=== PATIENT | female | born 2000 | race Hispanic/Latino ===

== ENCOUNTER 2020-06-27 09:21 | Outpatient (CLI) | payer OTHER ==
--- NOTE | 2020-06-27 13:28 | Ultrasound Report ---
ULTRASOUND ABDOMEN, LIMITED (RIGHT UPPER QUADRANT) INDICATION: Abdominal pain. 30 weeks 2 days . COMPARISON: None available. FINDINGS: PANCREAS: No significant abnormality. LIVER: No significant abnormality. GALLBLADDER: Multiple small echogenic foci in the gallbladder neck which demonstrate posterior shadow ing. The gallbladder is normal in size without wall thickening. Negative sonographic Marin sign. BILE DUCTS: No significant abnormality. Common bile duct measures 2.4 mm. FREE FLUID: None. ADDITIONAL FINDINGS: Images of the right kidney are normal. IMPRESSION: Cholelithiasis without sonographic evidence of acute cholecystitis. Signer Name: Slade Valdez MD Signed: 06/27/2020 1:24 PM Workstation Name: [id number]
== END 2020-06-27 09:22 | disposition home or self-care (01) ==
LOC: US 09:21
PROVIDERS: ATTEND Obstetrics & Gynecology
DX: K80.20 Calculus of gallbladder without cholecystitis without obstruction (principal)
CPT/HCPCS: 76705

== ENCOUNTER 2020-07-03 20:04 | Outpatient (CLI) | payer OTHER ==
[2020-07-03 20:52] VITALS: BP 107/97
[2020-07-03 21:50] LABS: Bacteria,Urine 2+ /HPF (Negative); Bilirubin,Urine NEG (Negative); Blood,Urine NEG (Negative); Color,Urine Amber (Yellow); Protein,Urine <15 mg/dL mg/dL (Negative); Urobilinogen,Urine < 2.0 mg/dL (<2.0)
[2020-07-03] MEDS ORDERED: LACTATED RINGERS 500 ML IV ONE (22:01)
[2020-07-03 22:24] LABS: Alanine Aminotransferase 18 units/L (7-56); Albumin 2.9 g/dL (3.9-5); Blood Urea Nitrogen 6 mg/dL (7-17); Calcium 7.7 mg/dL (8.4-10.2); Hemolysis Index 8
[2020-07-03 22:26] LABS: Eosinophils # (Auto) 0.1 K/mm3 (0.0-0.4); Eosinophils % (Auto) 0.7 % (0.0-4.3); Hematocrit 32.3 % (30.3-42.9); Hemoglobin 11.2 gm/dl (10.1-14.3); Lymphocytes % (Auto) 18.7 % (13.4-35.0); Mean Corpuscular HGB Conc 35 % (30-34); Mean Corpuscular Volume 92 fl (79-97); Monocytes # (Auto) 0.7 K/mm3 (0.0-0.8); Monocytes % (Auto) 6.9 % (0.0-7.3); Platelet Count 251 K/mm3 (140-440); Red Blood Count 3.52 M/mm3 (3.65-5.03); Red Cell Distribution Width 12.5 % (13.2-15.2)
[2020-07-03 22:27] LABS: Basophils % (Auto) 0.1 % (0.0-1.8)
[2020-07-03 22:27] LABS: BUN/Creatinine Ratio 15
== END 2020-07-03 23:16 | disposition home or self-care (01) ==
LOC: TRG 20:04 → APU 20:11 → TRG 23:16
PROVIDERS: ATTEND Obstetrics & Gynecology
DX: O26.893 Other specified pregnancy related conditions, third trimester (principal); R10.9 Unspecified abdominal pain; Z3A.31 31 weeks gestation of pregnancy
CPT/HCPCS: 36415; 59025; 80053; 81001; 82150; 83690; 85025; 96360

== ENCOUNTER 2020-08-20 18:06 | Outpatient (CLI) | payer OTHER ==
[2020-08-20 19:33] VITALS: BP 113/74
--- NOTE | 2020-08-20 21:41 | Vascular Lab Report ---
DUPLEX DOPPLER LOWER EXTREMITY VEINS, BILATERAL INDICATION / CLINICAL INFORMATION: Lower extremity swelling and pain. TECHNIQUE: Duplex doppler imaging was performed through the veins of both lower extremities using venous christian byron and other maneuvers. COMPARISON: None available. FINDINGS: RIGHT COMMON FEMORAL VEIN: Negative. RIGHT FEMORAL VEIN: Negative. RIGHT POPLITEAL VEIN: Negative. RIGHT CALF VEINS: Negative. LEFT COMMON FEMORAL VEIN: Negative. LEFT FEMORAL VEIN: Negative. LEFT POPLITEAL VEIN: Negative. LEFT CALF VEINS: Negative. ADDITIONAL FINDINGS: None. IMPRESSION: No sonographic evidence for DVT in either lower extremity. Signer Name: Roberto Liu MD Signed: 08/20/2020 9:37 PM Workstation Name: [id number]
--- NOTE | 2020-08-20 22:00 | Event Note ---
Date: 08/20/20 Pt presented to triage with c/o swelling in her lower extremities. She called the office and was told to come to the hospital for evaluation. She is a @ 37 + wks. She states that she has been walking around for about 5-6 hours a day for the last few days. Yesterday she went to work and was on her feet for 12 hours. Pt denies LEMUS, blurred vision, spots before her eyes, chest pain, upper abdominal pain, and shortness of breath. Her BP in triage was 113/74 and she was her O@ saturation was 99% on room air. Kerry Doppler studies were ordered and found to be negative for DVTs. She answered the COVID question of shortness of breath as yes, but denied shortness of breath upon further questioning. Her vital signs are as charted: O2 sats 99% on room air. We discussed taking a break every 2 hours at work, cutting back on salt, and putting her feet up when she is sitting down. We also discussed in third trimester swelling can occur and this is normal in . Pt has an appointment on 08/22 for follow up. Pt denies vaginal bleeding, LOF, ctxs. 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
== END 2020-08-20 21:30 | disposition home or self-care (01) ==
LOC: TRG 18:06 → APU 18:07 → TRG 21:30
PROVIDERS: ATTEND Obstetrics & Gynecology
DX: Z34.93 Encounter for supervision of normal pregnancy, unspecified, third trimester (principal); M79.89 Other specified soft tissue disorders; Z3A.37 37 weeks gestation of pregnancy
CPT/HCPCS: 59025; 93970

== ENCOUNTER 2020-08-28 17:58 | Inpatient (IN) | payer OTHER ==
[2020-08-30 16:11] VITALS: BP 114/73
== END 2020-08-30 16:50 | disposition home or self-care (01) | DRG 775 ==
LOC: TRG 17:58 → APU 18:00 → TRG 20:18 → OBSVTOIN 20:22 → LD 20:22 → OB 08-29 06:31
PROVIDERS: ADMIT Obstetrics & Gynecology; ATTEND Obstetrics & Gynecology
PROC: 10E0XZZ Delivery of Products of Conception, External Approach (ICD-10-PCS; principal; 2020-08-28)
PROC: 3E0R3BZ Introduction of Anesthetic Agent into Spinal Canal, Percutaneous Approach (ICD-10-PCS; 2020-08-28)
PROC: 00HU33Z Insertion of Infusion Device into Spinal Canal, Percutaneous Approach (ICD-10-PCS; 2020-08-28)
PROC: 0HQ9XZZ Repair Perineum Skin, External Approach (ICD-10-PCS; 2020-08-28)
PROC: 3E0234Z Introduction of Serum, Toxoid and Vaccine into Muscle, Percutaneous Approach (ICD-10-PCS; 2020-08-30)
DX: O77.0 Labor and delivery complicated by meconium in amniotic fluid (principal); O99.214 Obesity complicating childbirth; O99.344 Other mental disorders complicating childbirth; Z20.822 Contact with and (suspected) exposure to COVID-19; F32.9 Major depressive disorder, single episode, unspecified; O76 Abnormality in fetal heart rate and rhythm complicating labor and delivery; O70.0 First degree perineal laceration during delivery; D62 Acute posthemorrhagic anemia; O90.81 Anemia of the puerperium; Z3A.38 38 weeks gestation of pregnancy; Z37.0 Single live birth; Z79.899 Other long term (current) drug therapy; Z88.8 Allergy status to other drugs, medicaments and biological substances; Z56.0 Unemployment, unspecified; Z23 Encounter for immunization
CPT/HCPCS: 36415; 59025; 85014; 85018; 85027; 86592; 86850; 86900; 86901; 99211; G0378; A6250; G0463; J2590; Q0177; U0003